=== PATIENT | female | born 1945 | race Caucasian/White ===

== ENCOUNTER 2019-02-13 10:26 | Outpatient (CLI) | payer OTHER | END 2019-02-13 11:00 | disposition home or self-care (01) | LOC: RAD 10:26 | DX: M51.37 Other intervertebral disc degeneration, lumbosacral region (principal) ==

== ENCOUNTER 2019-02-14 11:50 | Outpatient (CLI) | payer OTHER | END 2019-02-14 11:53 | disposition home or self-care (01) | LOC: TOM 11:50 | DX: M25.552 Pain in left hip (principal) ==

== ENCOUNTER 2022-12-15 10:05 | Outpatient (CLI) | payer OTHER | END 2022-12-15 10:10 | disposition home or self-care (01) | LOC: RAD 10:05 | PROVIDERS: ATTEND Internal Medicine | DX: M25.561 Pain in right knee (principal) ==

== ENCOUNTER 2023-04-22 09:38 | Emergency (ER) | payer OTHER ==
[~2023-04-22] VITALS: Ht 165.1 cm; Wt 65.3 kg
[2023-04-22] MEDS ORDERED: [UNRECOGNIZED DRUG - OTHER] (10:02)
[2023-04-22 11:01] LABS: HEMATOCRIT 37.7 % (36.0-45.00); HEMOGLOBIN 12.9 g/dL (12.0-15.00); MEAN CELL VOLUME 90.8 fL (80.00-100.00); MEAN CORPUSCULAR HGB CONC 34.1 g/dl (32.0-36.0); PLATELET COUNT 216 K/uL (150-450); RED BLOOD COUNT 4.16 M/uL (4.00-6.00); RED CELL DISTRIBUTION WIDTH 14.5 % (11.5-14.5)
[2023-04-22 11:27] LABS: CALCIUM 8.6 mg/dL (8.5-10.1); CREATININE SERUM 0.84 mg/dL (0.55-1.02); GFR 66.1
== END 2023-04-22 14:30 | disposition home or self-care (01) ==
LOC: ER 09:38
PROVIDERS: Emergency Medicine
DX: K29.70 Gastritis, unspecified, without bleeding (principal); F41.8 Other specified anxiety disorders; Z91.018 Allergy to other foods; Z86.16 Personal history of COVID-19; Z85.42 Personal history of malignant neoplasm of other parts of uterus; Z20.822 Contact with and (suspected) exposure to COVID-19

== ENCOUNTER 2024-01-05 11:36 | Outpatient (CLI) | payer OTHER ==
[~2024-01-05 11:36] MED LIST: [UNRECOGNIZED DRUG - OTHER]
== END 2024-01-05 11:40 | disposition home or self-care (01) ==
LOC: MAMO-SONO 11:36
PROVIDERS: ATTEND Internal Medicine
DX: D49.3 Neoplasm of unspecified behavior of breast (principal); Z12.31 Encounter for screening mammogram for malignant neoplasm of breast

== ENCOUNTER → 2024-01-16 13:05 | Outpatient (CLI) | payer OTHER | END | disposition home or self-care (01) | LOC: NUCLEAR 13:05 | PROVIDERS: ATTEND Internal Medicine | DX: M81.0 Age-related osteoporosis without current pathological fracture (principal) ==